=== PATIENT | female | born 1945 | race Caucasian/White ===

== ENCOUNTER 2022-03-21 14:02 | Outpatient (CLI) | payer MEDICARE, BC, SELFPAY ==
[2022-03-21 21:41] LABS: Chloride* 94 mmol/L (96-114)
[2022-03-21 21:42] LABS: Potassium* 3.1 mmol/L (3.6-5.1); Sodium* 131 mmol/L (135-149)
[2022-03-21 21:44] LABS: Creatinine* 0.9 mg/dL (0.5-1.5); Estimated Glomerular Filt Rate 65 ml/min
[2022-03-21 21:45] LABS: Blood Urea Nitrogen* 18 mg/dL (7-30); Calcium* 9.1 mg/dL (8.4-10.6); Carbon Dioxide* 29 mmol/L (20-32); Glucose* 110 mg/dL (60-115)
== END 2022-03-21 14:03 | disposition home or self-care (01) ==
LOC: LKVREF 14:04
PROVIDERS: PCP Family Medicine; Visit Provider Family Medicine
DX: R05.9 Cough, unspecified (principal); R06.02 Shortness of breath; Z86.16 Personal history of COVID-19
CPT/HCPCS: 80048

== ENCOUNTER 2022-04-02 11:48 | Outpatient (CLI) | payer MEDICARE, BC, SELFPAY ==
[2022-04-02 14:29] LABS: Potassium* 3.2 mmol/L (3.6-5.1)
== END 2022-04-02 11:49 | disposition home or self-care (01) ==
PROVIDERS: PCP Family Medicine; Visit Provider Family Medicine
DX: E87.6 Hypokalemia (principal)
CPT/HCPCS: 84132

== ENCOUNTER 2022-04-09 13:25 | Outpatient (CLI) | payer MEDICARE, BC, SELFPAY ==
[2022-04-09 15:40] VITALS: BP 134/77; PULSE 79
--- NOTE | 2022-04-09 16:35 | PM.ST ---
Stress Test Note Date Date of test: 04/09/22 Providers Referring provider: Gopal Aguayo Primary care provider: Gopal Aguayo Stress test physician: Doe Hill Stress Test Note Stress test ordered: Stress Echo Indication for test: SOB Stress test medicine: Definity Results discussion: Patient is a very pleasant 68-year-old female presents for the above test after discussion the risks benefits side effects she would like to proceed cardiac stress test medical history form is reviewed, pretest EKG shows normal sinus rhythm, no acute ST wave changes but there is notable T-wave flattening throughout the tracing. Rhythm is sinus, with a ventricular rate of 80 and blood pressure 149/95. Following standard Don protocol patient is exercised for a total time of 4 minutes 24 seconds, achieved a metabolic equivalent of 6.2 Mets, her maximum heart rate was 149, which is 123% of the maximum. She overall had fatigue, but no chest pain no shortness of breath. There is no of acute dysrhythmias, there is no ST wave changes suggestive of ischemia, and she recovered in the normal recovery time. Impression: Negative electrographic portion of stress echo Follow up suggested: Await echo images which will be read by Cardiology, clinical correlation with these will be needed, patient left this testing facility in excellent condition to follow-up with primary care.
== END 2022-04-09 13:26 | disposition home or self-care (01) ==
PROVIDERS: PCP Family Medicine; Visit Provider Family Medicine
DX: R06.02 Shortness of breath (principal)
CPT/HCPCS: 93016; 93325; 93351

== ENCOUNTER 2022-05-30 15:23 | Outpatient (CLI) | payer MEDICARE, BC, SELFPAY ==
[2022-05-30 22:06] LABS: Albumin* 4.6 g/dL (3.3-5.0); Chloride* 96 mmol/L (96-114)
[2022-05-30 22:07] LABS: Potassium* 3.7 mmol/L (3.6-5.1); Sodium* 136 mmol/L (135-149)
[2022-05-30 22:09] LABS: Alkaline Phosphatase* 82 U/L (40-150); Aspartate Amino Transferase* 27 U/L (12-35); Bilirubin Total* 1.8 mg/dL (0.1-1.5); Blood Urea Nitrogen* 18 mg/dL (7-30); Carbon Dioxide* 31 mmol/L (20-32); Cholesterol* 206 mg/dL (90-199); Creatinine* 0.9 mg/dL (0.5-1.5); Estimated Glomerular Filt Rate 65 ml/min; Glucose* 107 mg/dL (60-115); Total Protein* 7.6 g/dL (6.0-8.3)
[2022-05-30 22:10] LABS: Alanine Aminotransferase* 19 U/L (4-35); Calcium* 9.9 mg/dL (8.4-10.6); HDL Cholesterol* 61 mg/dL (>=50); LDL Cholesterol Calculated 118 mg/dL (<100); Triglycerides* 137 mg/dL (40-149)
== END 2022-05-30 15:24 | disposition home or self-care (01) ==
PROVIDERS: PCP Family Medicine; Visit Provider Family Medicine
DX: Z00.00 Encounter for general adult medical examination without abnormal findings (principal); E78.5 Hyperlipidemia, unspecified; I10 Essential (primary) hypertension; F41.9 Anxiety disorder, unspecified
CPT/HCPCS: 80053; 80061

== ENCOUNTER 2023-06-30 10:30 | Outpatient (CLI) | payer MEDICARE, BC, SELFPAY | END 2023-06-30 10:31 | disposition home or self-care (01) | PROVIDERS: PCP Family Medicine; Visit Provider Family Medicine | DX: Z00.00 Encounter for general adult medical examination without abnormal findings (principal); E78.5 Hyperlipidemia, unspecified; I10 Essential (primary) hypertension; D61.818 Other pancytopenia | CPT/HCPCS: 80053; 80061; 82248 ==

== ENCOUNTER 2023-09-25 10:16 | Outpatient (CLI) | payer MEDICARE, BC, SELFPAY | END 2023-09-25 10:17 | disposition home or self-care (01) | LOC: NFLDREF 09-26 06:55 | PROVIDERS: PCP Family Medicine; Referring Provider Family Medicine; Visit Provider Family Medicine | DX: R17 Unspecified jaundice (principal); E78.5 Hyperlipidemia, unspecified | CPT/HCPCS: 80061; 80076 ==

== ENCOUNTER 2024-03-20 16:31 | Emergency (ER) | payer MEDICARE, BC, SELFPAY ==
[2024-03-20 16:36] VITALS: BP 174/102; PULSE 93; RESP 18; TEMP 37.5; O2SAT 95; BMI 25.8
--- NOTE | 2024-03-20 16:45 | ED_ITS ---
HPI - General Adult General Time Seen by Provider: 16:45 Date Seen: 03/20/24 Chief complaint: Cough Stated complaint: Congestion Time Seen by Provider: 03/20/24 16:33 Source: patient, RN notes reviewed and old records reviewed Mode of arrival: ambulatory Limitations: no limitations History of Present Illness HPI narrative: This 78-year-old female is coming in with worsening cough, inability to sleep. Her had a cold, this was about 3 weeks ago. She has been sick for about 2 weeks. She has seen pulmonology in the past, they feel she has asthma. She is maintained on Breo Ellipta and has been taking it. She has not had fevers. She is coughing, cannot quit coughing and cannot sleep due to this. Her nasal congestion does worsen at night but she cannot states that she is necessarily having postnasal drainage. No sore throat. She has been taking some Sudafed but notes that she has hypertension. Have advised her to talk to the pharmacist about other [id number] medicines that are better options for her with hypertension. She notes that she had a similar episode last winter, got put on some medicines and within 3 days was better. It looks like she was in urgent care in July, got a Z-Bernabe and a 5 day course of prednisone. Related Data Home Medications ?Medication ?Instructions ?Recorded ?Confirmed aspirin 81 mg chewable tablet 1 tab PO DAILY 03/04/22 03/20/24 Previous Rx's ?Medication ?Instructions ?Recorded rosuvastatin 5 mg tablet 5 mg PO .Bedtime #90 tabs 04/25/23 albuterol sulfate 90 mcg/actuation 2 inh inhalation QID PRN shortness 06/30/23 aerosol inhaler of breath or wheezing #8.5 grams atenolol 100 mg tablet 100 mg PO BID #180 tabs 06/30/23 fluticasone furoate 100 1 inh inhalation QDAY #180 ea 06/30/23 mcg-vilanterol 25 mcg/dose inhalation powder (Breo Ellipta) omeprazole 20 mg capsule,delayed 20 mg PO BID #180 caps 06/30/23 release hydrochlorothiazide 25 mg tablet 25 mg PO QAM #90 tabs 07/01/23 potassium chloride 10 mEq 10 meq PO BID #180 caps 07/01/23 capsule,extended release azithromycin 250 mg tablet See Rx Instructions PO .COMPLEX #6 08/08/23 tabs rosuvastatin 10 mg tablet 10 mg PO DAILY #90 tabs 09/26/23 Allergies Allergy/AdvReac Type Severity Reaction Status Date / Time bee venom protein (honey bee) Allergy Severe Anaphylaxis Verified 07/24/23 11:01 Review of Systems Narrative: As per HPI. [facility] Medical History Postmenopausal ?Z78.0 - Asymptomatic menopausal state (ICD-10) Bronchitis ?J40 - Bronchitis, not specified as acute or chronic (ICD-10) History of COVID-19 ?Z86.16 - Personal history of COVID-19 (ICD-10) HTN (hypertension) ?I10 - Essential (primary) hypertension (ICD-10) Sore throat ?J02.9 - Acute pharyngitis, unspecified (ICD-10) COVID-19 ?U07.1 - COVID-19 (ICD-10) Family History (Updated 03/20/22 @ 14:01 by Blayne Jane) Other Colon cancer Diabetes Social History Smoking Status: Former smoker Little interest or pleasure in doing things: not at all Feeling down, depressed, or hopeless: not at all Exam Const: Vital Signs, click to edit/add: Vital Signs - 24 hr 03/20/24 16:36 Temperature 99.5 F Pulse Rate [Right Pulse Oximeter] 93 Respiratory Rate 18 Blood Pressure [Ri ght Upper Arm] 174/102 H Pulse Oximetry 95 Oxygen Delivery Me thod Room Air This 78-year-old female is alert, interactive, no apparent distress. Voice is maybe mildly hoarse but she is able to speak in complete sentences. Pupils equal round reactive, sclera clear. TMs without any evidence of infection. Anterior nares shows some bogginess the mucosa, no significant drainage noted, mild erythema. Oropharynx normal mucosa, no exudates or erythema. Neck is supple, no adenopathy. Lungs actually have some mild distant breath sound changes to them but there is no wheezing or crackles, no tachypnea. CV regular rate and rhythm, no murmur. Documenting provider has reviewed patient's vital signs: yes Course Course ED Course: Did review her note in July, prior physical. Discussed that postnasal drainage and sinus drainage can cause coughing but if she does have underlying lung disease, this can be obviously contributing. Would have her stay on her Breo Ellipta. Discussed treating with prednisone and a Z-Bernabe. She notes that this cleared her symptoms up within 3 days last time. We will dispense this out of [facility]. Prednisone will be 20 mg b.i.d. for 5 days. Vital Signs Vital signs: Initial Vital Signs Temperature 99.5 F 03/20/24 16:36 Temperature Source Temporal Artery Scan 03/20/24 16:36 Pulse Rate 93 03/20/24 16:36 Respiratory Rate 18 03/20/24 16:36 Blood Pressure 174/102 H 03/20/24 16:36 Blood Pressure Mean 126 H 03/20/24 16:36 Blood Pressure Position Sitting 03/20/24 16:36 Pulse Oximetry 95 03/20/24 16:36 Oxygen Delivery Method Room Air 03/20/24 16:36 Vital Signs Temperature 99.5 F 03/20/24 16:36 Pulse Rate 93 03/20/24 16:36 Respiratory Rate 18 03/20/24 16:36 Blood Pressure 174/102 H 03/20/24 16:36 Pulse Oximetry 95 03/20/24 16:36 Oxygen Delivery Method Room Air 03/20/24 16:36 Temperature 99.5 F 03/20/24 16:36 Pulse Rate 93 03/20/24 16:36 Respiratory Rate 18 03/20/24 16:36 Blood Pressure 174/102 H 03/20/24 16:36 Pulse Oximetry 95 03/20/24 16:36 Oxygen Delivery Method Room Air 03/20/24 16:36 Discharge Plan Discharge Clinical Impression: Cough Qualifiers: Cough type: acute Qualified Code(s): R05.1 - Acute cough Patient Disposition: Home, Self-Care Condition: Stable Instructions: Asthma (ED), Acute Cough (ED) Additional Instructions: Start prednisone, take as prescribed, recommend taking with food to protect your stomach. Take Z-Bernabe as prescribed, this is an antibiotic. Continue on your Breo lips, can use your albuterol 2 puffs every 4 hours if needed for coughing or wheezing. If you are not improving over the next week, feel you are worsening at any point or have further concerns, please seek re-evaluation. Activity Level: No Restrictions Prescriptions: No Action aspirin 81 mg tablet,chewable 1 tab PO DAILY albuterol sulfate 90 mcg/actuation HFA aerosol inhaler 2 inh inhalation QID PRN (Reason: shortness of breath or wheezing) Qty: 8.5 12RF atenolol 100 mg tablet 100 mg PO BID Qty: 180 4RF fluticasone furoate-vilanterol [Breo Ellipta] 100-25 mcg/dose blister with device 1 inh inhalation QDAY Qty: 180 4RF omeprazole 20 mg capsule,delayed release(DR/EC) 20 mg PO BID Qty: 180 3RF azithromycin 250 mg tablet See Rx Instructions PO .COMPLEX Qty: 6 0RF Rx Instructions: For 250 mg dose pack: take 500 mg today (day 1), then 250 mg for 4 days (days 2-5) PO rosuvastatin 5 mg tablet 5 mg PO .Bedtime Qty: 90 0RF hydrochlorothiazide 25 mg tablet 25 mg PO QAM Qty: 90 4RF potassium chloride 10 mEq capsule, extended release 10 meq PO BID Qty: 180 3RF rosuvastatin 10 mg tablet 10 mg PO DAILY Qty: 90 4RF Follow Up/Referrals: Gopal Aguayo MD [Primary Care Provider] - Stand Alone Forms: [employer] Info Instructions
== END 2024-03-20 17:13 | disposition home or self-care (01) ==
PROVIDERS: Emergency Provider Family Medicine; PCP Family Medicine
DX: R05.1 Acute cough (principal)
CPT/HCPCS: 99283

== ENCOUNTER 2024-07-02 09:11 | Outpatient (CLI) | payer MEDICARE, BC, SELFPAY | END 2024-07-02 09:12 | disposition home or self-care (01) | PROVIDERS: PCP Family Medicine; Visit Provider Family Medicine | DX: Z00.00 Encounter for general adult medical examination without abnormal findings (principal); I10 Essential (primary) hypertension; E78.5 Hyperlipidemia, unspecified | CPT/HCPCS: 80053; 80061 ==

== ENCOUNTER 2024-07-12 12:26 | Outpatient (CLI) | payer MEDICARE, BC, SELFPAY | END 2024-07-12 12:27 | disposition home or self-care (01) | PROVIDERS: PCP Family Medicine; Visit Provider Family Medicine | DX: I71.21 Aneurysm of the ascending aorta, without rupture (principal); I51.7 Cardiomegaly; I35.1 Nonrheumatic aortic (valve) insufficiency; I34.0 Nonrheumatic mitral (valve) insufficiency; Q21.12 Patent foramen ovale | CPT/HCPCS: 93306 ==

== ENCOUNTER 2025-07-01 10:05 | Outpatient (CLI) | payer MEDICARE, BC, SELFPAY | END 2025-07-01 10:06 | disposition home or self-care (01) | LOC: NFLDREF 07-07 14:15 | PROVIDERS: PCP Family Medicine; Referring Provider Family Medicine; Visit Provider Family Medicine | DX: Z13.9 Encounter for screening, unspecified (principal) | CPT/HCPCS: 80053; 80061; 82306 ==